=== PATIENT | female | born 1995 | race African-American/Black ===

== ENCOUNTER 2016-12-24 15:26 | Emergency (ER) | payer OTHER ==
[~2016-12-24] VITALS: Ht 162.6 cm; Wt 98.0 kg
[2016-12-24] MEDS ORDERED: PRENATAL PO (15:33)
[2016-12-24 16:58] VITALS: BP 115/87
== END 2016-12-24 16:59 | disposition home or self-care (01) ==
LOC: EMS 15:27
DX: H10.89 Other conjunctivitis (principal); F17.210 Nicotine dependence, cigarettes, uncomplicated
CPT/HCPCS: 99283

== ENCOUNTER 2017-09-14 20:36 | Emergency (ER) | payer OTHER ==
[~2017-09-14] VITALS: Ht 165.1 cm; Wt 90.9 kg
[~2017-09-14 20:36] MED LIST: PRENATAL PO
[2017-09-14] MEDS ORDERED: HYDR-309 PO (20:42)
[2017-09-14] MEDS ORDERED: HYDROCODONE/ACETAMINOPHEN 5-325 MG TABLET PO ONE (22:15)
[2017-09-14 23:15] VITALS: BP 109/74
== END 2017-09-15 00:49 | disposition home or self-care (01) ==
LOC: EMS 20:37
DX: S00.83XA Contusion of other part of head, initial encounter (principal); F17.210 Nicotine dependence, cigarettes, uncomplicated; Y04.0XXA Assault by unarmed brawl or fight, initial encounter; Y93.89 Activity, other specified; Y92.89 Other specified places as the place of occurrence of the external cause; Y99.8 Other external cause status
CPT/HCPCS: 70486; 81025; 99284

== ENCOUNTER 2017-12-30 19:02 | Emergency (ER) | payer OTHER ==
[~2017-12-30] VITALS: Ht 165.1 cm; Wt 81.8 kg
[~2017-12-30 19:02] MED LIST changes: +HYDR-309 PO; -PRENATAL PO
[2017-12-30] MEDS ORDERED: [UNRECOGNIZED DRUG - CODE] MM (19:23)
[2017-12-30] MEDS ORDERED: LIDOCAINE HCL/PF 1% 2 ML VIAL IM ONE (20:30)
[2017-12-30] MEDS ORDERED: CefTRIAXone SODIUM 1 GM/VIAL IM ONE (20:30)
[2017-12-30] MEDS ORDERED: AZITHROMYCIN 250 MG TABLET PO ONE (20:30)
[2017-12-30 21:03] VITALS: BP 116/74
== END 2017-12-30 21:04 | disposition home or self-care (01) ==
LOC: EMS 19:03
DX: J02.9 Acute pharyngitis, unspecified (principal); N89.8 Other specified noninflammatory disorders of vagina; N72 Inflammatory disease of cervix uteri; F17.210 Nicotine dependence, cigarettes, uncomplicated
CPT/HCPCS: 81002; 81025; 96372; 99283; J0696; J3490

== ENCOUNTER 2025-01-22 15:23 | Emergency (ER) | payer MEDICAID, OTHER ==
[~2025-01-22] VITALS: Ht 165.1 cm; Wt 100.0 kg
[~2025-01-22 15:23] MED LIST changes: -HYDR-309 PO; +[UNRECOGNIZED DRUG - CODE] MM
[2025-01-22 15:27] VITALS: TEMP 97.9
[2025-01-22 16:17] LABS: APPEARANCE,URINE CLEAR (CLEAR); BILIRUBIN,URINE NEGATIVE (NEGATIVE); COLOR,URINE LIGHT YELLOW (YELLOW); GLUCOSE, URINE (UA) NEGATIVE (NEGATIVE); KETONES,URINE NEGATIVE (NEGATIVE); LEUKOCYTE ESTERASE ,URINE SMALL (NEGATIVE); NITRATE,URINE NEGATIVE (NEGATIVE); OCCULT BLOOD,URINE NEGATIVE (NEGATIVE); PH,URINE 5.5 (5.0-8.0); PROTEIN,URINE NEGATIVE (NEGATIVE); SPECIFIC GRAVITIY, URINE 1.012 (1.003-1.030); UROBILINOGEN,URINE <=1.0 mg/dL (<=1.0)
[2025-01-22 16:22] LABS: HCG,QUAL URINE NEGATIVE (NEGATIVE)
[2025-01-22] MEDS ORDERED: PHEN-846 PO (16:34)
[2025-01-22] MEDS ORDERED: CEPH-558 PO (16:34)
[2025-01-22] MEDS: PHENAZOPYRIDINE HCL 100 MG TABLET PO ONE (16:38)
[2025-01-22] MEDS: CEPHALEXIN MONOHYDRATE 500 MG CAPSULE PO ONE (16:38)
[2025-01-22 16:40] VITALS: BP 126/69; PULSE 92; RESP 18; O2SAT 100
[2025-01-22 16:52] LABS: BACTERIA,URINE Few /HPF (None Seen); RBC,URINE 0-2 /HPF (0-2); SQUAMOUS EPITHELIAL CELL,UR Few /LPF (None Seen)
== END 2025-01-22 16:41 | disposition home or self-care (01) ==
LOC: EMS 15:23
DX: N39.0 Urinary tract infection, site not specified (principal); R30.0 Dysuria
CPT/HCPCS: 81001; 84703; 87086; 99283

== ENCOUNTER 2025-02-08 23:36 | Emergency (ER) | payer MEDICAID ==
[~2025-02-08] VITALS: Ht 165.1 cm; Wt 109.1 kg
[~2025-02-08 23:36] MED LIST changes: +CEPH-558 PO; +PHEN-846 PO
[2025-02-08 23:44] VITALS: BP 129/95; PULSE 116; RESP 20; TEMP 98.2; O2SAT 100
[2025-02-09 01:21] LABS: BASOPHILS % (AUTO) 0.9 % (0.0-2.0); EOSINOPHILS % (AUTO) 1.1 % (1.0-6.0); HEMATOCRIT 39.8 % (36-46); HEMOGLOBIN 13.4 g/dL (12.0-16.0); LYMPHOCYTES # (AUTO) 2.5 K/uL (1.0-4.8); LYMPHOCYTES % (AUTO) 24.7 % (22.0-44.0); MEAN CORPUSCULAR HEMOGLOBIN 28.9 pg (26.0-34.0); MEAN CORPUSCULAR HGB CONC 33.6 G/dL (31.0-37.0); MEAN CORPUSCULAR VOLUME 86 fL (80-100); MONOCYTES # (AUTO) 0.7 K/uL (0.1-1.0); MONOCYTES % (AUTO) 7.1 % (2.0-9.0); NEUTROPHILS # (AUTO) 6.7 K/uL (1.8-7.7); NEUTROPHILS % (AUTO) 66.2 % (40.0-70.0); PLATELET COUNT (AUTO) 213 K/uL (150-450); RED BLOOD CELL COUNT(AUTO) 4.62 MIL/uL (4.00-5.20); RED CELL DISTRIBUTION WIDTH 12.8 % (11.5-14.5); WHITE BLOOD COUNT (AUTO) 10.2 K/uL (4.5-11.0)
[2025-02-09 01:29] LABS: ANION GAP 2 mmol/L (8-16); CALCIUM, TOTAL 8.7 mg/dL (8.8-10.5); CARBON DIOXIDE 31 mmol/L (22-29); CHLORIDE 104 mmol/L (98-107); CREATININE 1.06 mg/dL (0.60-1.30); GLOMERULAR FILTR. RATE CALC > 60 mL/min (>60); GLUCOSE,RANDOM 112 mg/dL (70-110); POTASSIUM 4.1 mmol/L (3.5-5.1); SODIUM SERUM 137 mmol/L (136-145); UREA NITROGEN, BLOOD 10 mg/dL (7-18)
[2025-02-09 02:45] LABS: APPEARANCE,URINE CLEAR (CLEAR); BILIRUBIN,URINE NEGATIVE (NEGATIVE); COLOR,URINE LIGHT YELLOW (YELLOW); GLUCOSE, URINE (UA) NEGATIVE (NEGATIVE); KETONES,URINE NEGATIVE (NEGATIVE); LEUKOCYTE ESTERASE ,URINE TRACE (NEGATIVE); NITRATE,URINE NEGATIVE (NEGATIVE); OCCULT BLOOD,URINE NEGATIVE (NEGATIVE); PROTEIN,URINE NEGATIVE (NEGATIVE); SPECIFIC GRAVITIY, URINE 1.012 (1.003-1.030); UROBILINOGEN,URINE <=1.0 mg/dL (<=1.0)
[2025-02-09 02:49] LABS: BACTERIA,URINE None Seen /HPF (None Seen); RBC,URINE None Seen /HPF (0-2); SQUAMOUS EPITHELIAL CELL,UR Rare /LPF (None Seen); WBC,URINE 0-2 /HPF (0-5)
[2025-02-09 02:53] LABS: ALCOHOL, URINE DRUG SCREEN NEGATIVE (NEGATIVE); AMPHET/METH SCREEN,URINE NEGATIVE (NEGATIVE); BARBITURATE SCREEN, URINE NEGATIVE (NEGATIVE); BENZODIAZEPINES SCREEN,URINE NEGATIVE (NEGATIVE); CANNABINOID SCREEN,URINE NEGATIVE (NEGATIVE); COCAINE SCREEN,URINE NEGATIVE (NEGATIVE); METHADONE SCREEN, URINE NEGATIVE (NEGATIVE); OPIATE SCREEN,URINE NEGATIVE (NEGATIVE); PHENCYCLIDINE SCREEN,URINE NEGATIVE (NEGATIVE)
[2025-02-09] MEDS ORDERED: SULF1TAB42 PO (03:11)
[2025-02-09] MEDS: SULFAMETHOX/TRIMETH DS 800-160 MG/TABLET PO ONE (03:26)
== END 2025-02-09 03:41 | disposition home or self-care (01) ==
LOC: EMS 23:46
DX: R00.2 Palpitations (principal); N39.0 Urinary tract infection, site not specified; Z79.899 Other long term (current) drug therapy
CPT/HCPCS: 80048; 80307; 81001; 84703; 85025; 87491; 87591; 93005; 99284